=== PATIENT | male | born 1935 | race Caucasian/White ===

== ENCOUNTER 2019-07-26 01:46 | Inpatient (IN) | payer OTHER ==
[~2019-07-26] VITALS: Ht 180.3 cm; Wt 131.8 kg
--- NOTE | 2019-07-26 03:08 | NUR ---
0255 PT ARRIVED VIA EMS FROM [facility] [place]. INTO ROOM 207. ORIENTED TO ROOM AND SURROUNDINGS. PT PLACED ON TELEMETRY. WILL ADMIT PT. CALL PLACED TO [facility] TO NOTIFY HER THAT PT WAS HERE. SHE IS NOW DOWN ON THE FLOOR TO GO THROUGH HIS TRANSFER PAPERWORK AND SEE PT. .
[2019-07-26 03:10] VITALS: BP 151/100
--- NOTE | 2019-07-26 05:32 | NUR ---
PT SIGNED CONSENT FOR TELE INTERFERENCE AND ALLOWED FOR QUESTIONS.
[2019-07-26 05:52] LABS: HEMATOCRIT 43.2 % (42.0-52.0); HEMOGLOBIN 13.7 gm/dL (14.0-18.0); MCH 30.2 pg (26.0-34.0); MCHC 31.8 g/dL (28.0-37.0); MCV 94.9 fL (80.0-100.0); RBC 4.55 mil/uL (4.50-6.00); RDW 17.2 % (10.5-14.5); WBC 15.7 thou/uL (4.0-11.0)
[2019-07-26] MEDS ORDERED: DEXAMETHASONE 44 M1 PO (06:01)
[2019-07-26] MEDS ORDERED: ALLOPURINOL 10100 M3 PO (06:02)
[2019-07-26] MEDS ORDERED: FLOMAX0.4 MG PO (06:02)
[2019-07-26] MEDS ORDERED: DIGITEK125 MC1 PO (06:04)
[2019-07-26 06:05] LABS: APTT 26.7 Seconds (24.5-32.8); PROTIME 10.5 Seconds (9.3-11.4)
[2019-07-26] MEDS ORDERED: OFEV100 MG PO (06:05)
[2019-07-26] MEDS ORDERED: LOPRESSOR50 MG PO (06:05)
[2019-07-26 06:06] LABS: CALCIUM 9.1 mg/dL (8.5-10.1); CREATININE 1.6 mg/dL (0.7-1.3)
[2019-07-26] MEDS ORDERED: PROSCAR 5MG TABL5 MG PO (06:06)
[2019-07-26] MEDS ORDERED: TORSEMIDE20 MG PO (06:06)
[2019-07-26 06:16] LABS: TROPONIN-I 0.08 ng/mL (<0.06)
[2019-07-26 08:41] VITALS: BP 128/79
--- NOTE | 2019-07-26 12:02 | HC ---
[facility] [place] [address] CONSULTATION Name: NOLAN SAWYER Room #: 207-P [facility] IN M.R.#: [id number] Admission: 07/26/19 Attend Phys: Patricia Torres Discharge: Date of : 39 Report #: [id number] THIS REPORT FOR: //name// CC: FAM unknown Patricia Torres REASON FOR CONSULTATION: Elevated troponin. 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 He has plans on seeing an oncologist next week with this recent diagnosis. He has been doing reasonably well with the exception of mild lower extremity edema and ongoing exertional breathlessness. No chest heaviness or pressure. He reports "just not feeling right yesterday" and he presented to the Emergency Department where his troponin was minimally elevated. He was transferred here with a diagnosis of a non-STEMI. He denies chest heaviness, pressure or ischemic type symptoms. His troponin was 0.113. His white count was elevated and he had a chest x-ray suggesting possible pneumonia. White count was also elevated. He tells me that he is not a candidate for chemotherapy and his life expectancy is measured in months. 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 He denies ICD discharge, near syncope or syncope. MEDICATIONS: Include allopurinol 300 mg daily, digoxin 0.125 mg daily, finasteride, Toprol 50 mg daily, prednisone, Flomax, torsemide 20 mg twice daily. ALLERGIES: There are no known drug allergies. PAST MEDICAL HISTORY: Medical records have been reviewed and include a history of right shoulder arthroplasty, pacemaker insertion, biventricular pacer placement, left ankle surgery. SOCIAL HISTORY: He was a 2-3 pack per day smoker, quit many years ago, retired, . FAMILY HISTORY: Notable for father who had lung cancer. REVIEW OF SYSTEMS: All systems negative except as that noted above. PHYSICAL EXAMINATION: GENERAL: A pleasant gentleman, in no distress. VITAL SIGNS: Blood pressure is 150/100, heart rate is 75 and regular. He is afebrile, 5 feet 11 inches tall, 295 pounds. HEENT: There are neither xanthelasma, subcutaneous xanthomata, oral mucosal or digital cyanosis or kyphoscoliosis present. [facility] [address] [place] [address] CONSULTATION Name: NOLAN SAWYER Room #: 207-P [facility] IN M.R.#: [id number] Admission: 07/26/19 Attend Phys: Patricia Torres Discharge: Date of : 37 Report #: [id number] CHEST: Reveals bibasilar rales, few upper airway rhonchi. CARDIAC: Regular rate and rhythm with normal S1, S2. ABDOMEN: Soft, obese and nontender. EXTREMITIES: Reveal 1-2+ pitting edema, left greater than right. NEUROLOGIC: He is alert with a nonfocal exam. LABORATORY DATA: Sodium 145, potassium 4.0, creatinine 1.6. Troponin 0.08. Coagulation parameters normal. White count 15.7, hemoglobin 13, hematocrit 43, platelet count 178. ProBNP of 4000. IMPRESSION: 1. Yicwx-em-gluyuzy respiratory failure; probable pneumonia. 2. Severe pulmonary fibrosis, FEV1 of 1.77 or 55% of predicted. 3. 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 4. Permanent atrial fibrillation. 5. 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 Recent head XRT 6. Small troponin elevation consistent with type 2 myocardial infarction in the setting of metastatic cancer, hypoxemia and cardiomyopathy. 7. Chronic kidney disease. 8. Deconditioning. RECOMMENDATIONS: 1. Continue to use of metoprolol; low dose daily aspirin if he tolerates this in place of warfarin. His warfarin was stopped due to recent hemoptysis and [employer] metastases. I would recommend medical therapy for his cardiomyopathy and troponin elevation, which I suspect is not a primary myocardial ischemic event. He has absolute contraindication to anticoagulant. 2. Interrogate pacemaker. 3. Echocardiogram with Doppler. Further thoughts will be forthcoming based on this evaluation. Thank you for asking me to participate in his care. <ELECTRONICALLY SIGNED> By: Sheldon Storey MD, FACC 07/26/19 1202 0826 0851 Sheldon Storey MD, FACC /nt
[2019-07-26 12:50] VITALS: BP 118/72
--- NOTE | 2019-07-26 12:57 | EKG ---
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 Worker: DOUGLAS Calvin : 1935 Requested By: Rae Head Order Number: [id number] MD: Sheldon Storey Measurements Intervals [place] Rate: 75 P: TN: QRS: 235 QRSD: 135 T: 52 QT: 441 QTc: 493 Interpretive Statements Afib/flutter and ventricular-paced rhythm No further analysis attempted due to paced rhythm Compared to ECG 08/04/2007 09:07:13 Ventricular pacing is now present Electronically Signed On 07-26-2019 12:57:40 TROLLEY COLLECTOR by Sheldon Storey [email or web address] <ELECTRONICALLY SIGNED> By: Sheldon Storey MD, [facility] 07/26/19 1257 0527 0527 Sheldon Storey MD, [facility] /EPI
--- NOTE | 2019-07-26 13:00 | EKG ---
[place] [address] [address] 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: ZUHAIR : 1935 Requested By: Rae Head Order Number: [id number] MD: Sheldon Storey Measurements Intervals [place] Rate: 82 P: DC: QRS: 236 QRSD: 130 T: 54 QT: 421 QTc: 492 Interpretive Statements Afib/flutter and ventricular-paced rhythm No further analysis attempted due to paced rhythm Compared to ECG 08/04/2007 09:07:13 No significant change was found Electronically Signed On 07-26-2019 12:59:54 SCIENTIFIC SOFTWARE DEVELOPER by Sheldon Storey [email or web address] <ELECTRONICALLY SIGNED> By: Sheldon Storey MD, [facility] 07/26/19 1259 0 0 Sheldon Storey MD, [facility] /EPI
--- NOTE | 2019-07-26 15:54 | NUR ---
pt somewhat depressed about hospital stay. sob and "tired" of being here. wants to get home. doesn't seem to have hope. dr benitez in to see pt and explain plan of care to pt's . will continue to offer holistic care and assess pt's needs/desires.
[2019-07-26 16:32] VITALS: BP 113/66
--- NOTE | 2019-07-26 17:27 | NUR ---
vq scan results given to Dr Toro with response of, "OK"
[2019-07-26 20:26] VITALS: BP 128/81
[2019-07-26 23:53] VITALS: BP 142/80
[2019-07-27] VITALS (9 sets, daily range): BP systolic 109–140; BP diastolic 71–93
[2019-07-27 04:08] LABS: HEMATOCRIT 41.9 % (42.0-52.0); HEMOGLOBIN 13.3 gm/dL (14.0-18.0); MCH 30.3 pg (26.0-34.0); MCHC 31.6 g/dL (28.0-37.0); MCV 95.7 fL (80.0-100.0); RBC 4.38 mil/uL (4.50-6.00); RDW 17.8 % (10.5-14.5); WBC 15.6 thou/uL (4.0-11.0)
[2019-07-27 04:25] LABS: ALBUMIN 2.4 g/dL (3.4-5.0); CALCIUM 8.9 mg/dL (8.5-10.1); CREATININE 1.6 mg/dL (0.7-1.3); MAGNESIUM 2.1 mg/dL (1.8-2.4); POTASSIUM 3.5 mmol/L (3.5-5.1); TOTAL BILIRUBIN 0.5 mg/dL (<0.1-1.0); TOTAL PROTEIN 6.3 g/dL (6.4-8.2)
--- NOTE | 2019-07-27 05:26 | NUR ---
ASSUMED PT CARE AT 1900. PT IS ALERT AND ORIENTED. PT IS LAYING IN BED, RESTING COMFORTABLY. FALL PRECAUTION IN PLACE. NO SIGN OF DISTRESS NOTE. PT'S O2 INCREASED TO 6L NC. ASSESSMENT COMPLETED AND DOCUMENTED. SCHEDULED MEDS ADMINISTERED TO PT. CONTINUE TO MONITOR BREATHING. DENIES ANY FURTHER NEEDS AT THIS TIME.
--- NOTE | 2019-07-27 10:59 | NUR ---
Nutrition: pt admitted with progressive SOB and weakness, NSTEMI. Received consult related to recent new dx lung CA. Mets present to head, ribs, mediastinum. Recent radiation to brain but not a chemo candidate due to limited life expectancy. DNR. Pt has a good appetite, 75% of meals doc so far. Stable weights. BMI 40, extreme class 3 obesity. NPO currently for IVC filter placement. Able to order meals. Pt requests increased fruits/veggies. Will order. Place as low nutrition risk.
--- NOTE | 2019-07-27 13:43 | NUR ---
FAXED REFERRAL TO [facility] SPOKE WITH SIERRA IN INTAKE AND SHE RECEIVED REFERRAL AND WILL REVIEW. THEY DO SERVICE PT'S HOME IN [place], [place].
--- NOTE | 2019-07-27 14:29 | 2DMMODE ---
[facility] [address] [place] [address] 2 D/M-MODE ECHOCARDIOGRAM Name: ALANNANOLAN Room #: 207-P [facility] IN .R.#: [id number] Admission: 07/26/19 Attend Phys: Patricia Gomes Discharge: Date of : 37 Report #: [id number] THIS REPORT FOR: //name// APPROVED REPORT Study performed: 07/27/2019 11:41:22 EXAM: Comprehensive 2D, Doppler, and color-flow Echocardiogram Patient Location: Bedside Room #: [facility] Status: routine BSA: 2.44 HR: 82 bpm BP: 117/77 mmHg Rhythm: Atrial Fibrillation Other Information Study Quality: Adequate Indications Congestive Heart Failure Atrial Fibrillation Dyspnea Pacemaker Elevated Troponin Pulmonary Fibrosis 2D Dimensions IVSd: 18.19 (7-11mm) LVOT Diam: 23.00 (18-24mm) LVDd: 64.51 mm PWd: 14.52 (7-11mm) Ascending Ao: 44.28 (22-36mm) LVDs: 48.14 (25-40mm) Aortic Root: 39.42 mm LV Single Plane 4CH: 49.12 % LV Single Plane 2CH: 45.19 % Biplane EF: 48.3 % Volumes Left Atrial Volume (Systole) Single Plane 4CH: 157.81 mL Single Plane 2CH: 141.27 mL LA ESV Index: 71.00 mL/m2 Aortic Valve AoV Peak Sav.: 1.68 m/s AO Peak Gr.: 11.42 mmHg LVOT Max P.04 mmHg [facility] [address] [place] [address] 2 D/M-MODE ECHOCARDIOGRAM Name: NOLAN SAWYER Room #: 207-P [facility] IN ..#: [id number] Admission: 07/26/19 Attend Phys: Patricia Gomes Discharge: Date of : 37 Report #: [id number] LVOT Max V: 0.87 m/s ELSI Vmax: 2.19 cm2 Pulmonary Valve PV Peak Sav.: 0.77 m/s PV Peak Gr.: 2.35 mmHg Tricuspid Valve TR Peak Sav.: 2.93 m/s TR Peak Gr.: 34.25 mmHg Left Ventricle Left ventricle is dilated. There is normal LV segmental wall motion. Moderate to severe concentric left ventricular hypertrophy. The left ventricular systolic function is normal. The left ventricular ejection fraction is within the normal range. LVEF is 55-60%. This study is not technically sufficient to allow evaluation of the LV diastolic function due to atrial fibrillation. Right Ventricle Right ventricle is dilated. The right ventricular systolic function is normal. Device lead is present in the right ventricle. Atria Left atrium is severely dilated. Right atrium is severely dilated. Aortic Valve The aortic valve is mildly calcified. Trace aortic regurgitation. There is no aortic valvular stenosis. Mitral Valve Mild-moderate mitral annular calcification. Mild-moderate mitral regurgitation. No evidence of mitral valve stenosis. Tricuspid Valve The tricuspid valve is normal in structure. Mild tricuspid regurgitation.Tricuspid regurgitation jet measures 34 mmHg. Unable to assess PA pressure. Pulmonic Valve The pulmonary valve is normal in structure. There is no pulmonic valvular regurgitation. Great Vessels The aortic root is normal in size. Ascending aorta is dilated and measures 4.4 cm. IVC is not well visualized. [facility] [address] [place] [address] 2 D/M-MODE ECHOCARDIOGRAM Name: NOLAN SAWYER Room #: 207-P [facility] IN M.R.#: [id number] Admission: 07/26/19 Attend Phys: Patricia Gomes Discharge: Date of : 37 Report #: [id number] Pericardium There is no pericardial effusion. <Conclusion> The left ventricular systolic function is normal. There is normal LV segmental wall motion. LVEF is 55-60%. Right ventricle is dilated. Both atria are severely dilated. The aortic valve is mildly calcified. Trace aortic regurgitation, no stenosis. Mild-moderate mitral annular calcification. Mild-moderate mitral regurgitation. Mild tricuspid regurgitation. There is no pericardial effusion. <ELECTRONICALLY SIGNED> By: Sheldon Storey MD, [facility] 07/27/19 1428 1428 1428 Sheldon Storey MD, FACC /INF
--- NOTE | 2019-07-27 17:31 | NUR ---
rec consult plan home tomorrow with hospice. Met with patient who reports he has hx of lung cancer. Patient with metastatic cancer. Patient reports lives at home with . All needs on one level. No children. he has home oxygen and walker at home. Discussed if he was seeing oncology to discuss further tx and patient reports he likely will not be able to tolerate. Patient reports interest in any service that will service his area. [place] [facility] and reports cannot rec care. He is agreeable to hospice informational meeting. Sp with she is also agreeable and reports they have no services in area. [facility] has a branch in [facility]. Sent clinical information if they could service patient. They can service his area. [facility] met with patient and discussed with . They are agreeable to dc home with [facility] at ok.
[2019-07-28 04:35] LABS: HEMATOCRIT 42.3 % (42.0-52.0); HEMOGLOBIN 13.5 gm/dL (14.0-18.0); MCH 30.5 pg (26.0-34.0); MCHC 31.9 g/dL (28.0-37.0); MCV 95.5 fL (80.0-100.0); RBC 4.42 mil/uL (4.50-6.00); RDW 18.3 % (10.5-14.5); WBC 13.8 thou/uL (4.0-11.0)
[2019-07-28 04:48] LABS: ALBUMIN 2.5 g/dL (3.4-5.0); CALCIUM 9.3 mg/dL (8.5-10.1); CREATININE 1.9 mg/dL (0.7-1.3); PHOSPHORUS 4.3 mg/dL (2.5-4.9); POTASSIUM 3.6 mmol/L (3.5-5.1)
--- NOTE | 2019-07-28 05:28 | NUR ---
ASSUMED PT CARE AT 1900. PT IS ALERT AND ORIENTED WITH NO SIGN OF DISTRESS NOTED. FAMILY AT BEDSIDE. DENIES ANY PAIN. FALL PRECAUTION IN PLACE. PT IS STABLE THROUGHOUT THE NIGHT. ASSESSMENT COMPLETED AND DOCUMENTED. VSS. SCHEDULED MEDS ADMINISTERED TO PT. DENIES ANY PAIN. NO FURTHER NEEDS REUESTED AT THIS TIME.
[2019-07-28 05:35] VITALS: BP 137/82
[2019-07-28 08:11] VITALS: BP 132/83
[2019-07-28] MEDS ORDERED: CEFUROXIME500 MG PO (08:18)
[2019-07-28] MEDS ORDERED: NORCO 5-325 TA1 EAC1 PO (08:22)
[2019-07-28 09:46] VITALS: BP 132/83
[2019-07-28 11:52] VITALS: BP 136/89
[2019-07-28 12:17] VITALS: BP 132/83
--- NOTE | 2019-07-28 13:50 | NUR ---
patient to dc home today and meet with [facility] once home. [facility] to deliver equiptment to home. Outside DNR signed and faxed to hospice. Patient has original DNR form to take home. to transport home no further needs
== END 2019-07-28 15:11 | disposition hospice, home (50) | DRG 166 ==
LOC: 2N 01:46
PROVIDERS: Internal Medicine; Nurse Practitioner; ADMIT Hospitalist
PROC: 06H03DZ Insertion of Intraluminal Device into Inferior Vena Cava, Percutaneous Approach (ICD-10-PCS; principal; 2019-07-27)
PROC: B5191ZA Fluoroscopy of Inferior Vena Cava using Low Osmolar Contrast, Guidance (ICD-10-PCS; 2019-07-27)
PROC: B549ZZA Ultrasonography of Inferior Vena Cava, Guidance (ICD-10-PCS; 2019-07-27)
DX: J96.21 Acute and chronic respiratory failure with hypoxia (principal); I21.A1 Myocardial infarction type 2; J18.9 Pneumonia, unspecified organism; I50.23 Acute on chronic systolic (congestive) heart failure; I26.99 Other pulmonary embolism without acute cor pulmonale; N17.9 Acute kidney failure, unspecified; C78.1 Secondary malignant neoplasm of mediastinum; C79.89 Secondary malignant neoplasm of other specified sites; C79.51 Secondary malignant neoplasm of bone; I48.21 Permanent atrial fibrillation; I42.9 Cardiomyopathy, unspecified; C34.90 Malignant neoplasm of unspecified part of unspecified bronchus or lung; I13.0 Hypertensive heart and chronic kidney disease with heart failure and stage 1 through stage 4 chronic kidney disease, or unspecified chronic kidney disease; J44.0 Chronic obstructive pulmonary disease with (acute) lower respiratory infection; R04.2 Hemoptysis; E46 Unspecified protein-calorie malnutrition; Z68.41 Body mass index [BMI] 40.0-44.9, adult; M19.90 Unspecified osteoarthritis, unspecified site; N18.3 Chronic kidney disease, stage 3 (moderate); N40.0 Benign prostatic hyperplasia without lower urinary tract symptoms; J84.10 Pulmonary fibrosis, unspecified; Z96.611 Presence of right artificial shoulder joint; Z51.5 Encounter for palliative care; R29.6 Repeated falls; Z66 Do not resuscitate; Z95.0 Presence of cardiac pacemaker; Z87.891 Personal history of nicotine dependence; Z79.899 Other long term (current) drug therapy; Z80.1 Family history of malignant neoplasm of trachea, bronchus and lung; Z86.718 Personal history of other venous thrombosis and embolism; Z79.01 Long term (current) use of anticoagulants; Z91.81 History of falling
CPT/HCPCS: 10081; 10797